=== PATIENT | female | born 1940 | race Caucasian/White ===

== ENCOUNTER → 2023-06-28 12:01 | Outpatient (REF) | payer MEDICARE, SELFPAY | LOC: RAD 12:01 | PROVIDERS: ATTENDING PHYSICIAN Physician Assistant Medical | DX: M25.511 Pain in right shoulder (principal) | CPT/HCPCS: 73030 ==

== ENCOUNTER → 2023-11-30 14:04 | Outpatient (REF) | payer MEDICARE, SELFPAY | LOC: WDC 14:04 | PROVIDERS: ATTENDING PHYSICIAN Family Medicine | DX: Z12.31 Encounter for screening mammogram for malignant neoplasm of breast (principal) | CPT/HCPCS: 77063; 77067 ==

== ENCOUNTER → 2024-04-28 09:27 | Outpatient (REF) | payer MEDICARE, SELFPAY | LOC: RAD 09:27 | PROVIDERS: ATTENDING PHYSICIAN Family Medicine | DX: M25.562 Pain in left knee (principal) | CPT/HCPCS: 73564 ==

== ENCOUNTER → 2024-05-03 11:10 | Outpatient (REF) | payer MEDICARE, SELFPAY | LOC: RAD 11:10 | PROVIDERS: ATTENDING PHYSICIAN Specialist; FAMILY PHYSICIAN Family Medicine | DX: M43.06 Spondylolysis, lumbar region (principal) | CPT/HCPCS: 72110 ==

== ENCOUNTER → 2024-12-05 12:56 | Outpatient (REF) | payer MEDICARE, SELFPAY | LOC: WDC 12:56 | PROVIDERS: ATTENDING PHYSICIAN Family Medicine | DX: Z12.31 Encounter for screening mammogram for malignant neoplasm of breast (principal) | CPT/HCPCS: 77063; 77067 ==

== ENCOUNTER → 2024-12-17 11:25 | Outpatient (REF) | payer MEDICARE, SELFPAY | LOC: REG 11:25 | PROVIDERS: ATTENDING PHYSICIAN Specialist; FAMILY PHYSICIAN Family Medicine | DX: G30.1 Alzheimer's disease with late onset (principal) | CPT/HCPCS: 36415 ==

== ENCOUNTER → 2025-01-15 07:04 | Outpatient (REF) | payer MEDICARE, SELFPAY | LOC: PAVMRI 07:04 | PROVIDERS: ATTENDING PHYSICIAN Specialist; FAMILY PHYSICIAN Family Medicine | DX: G31.84 Mild cognitive impairment of uncertain or unknown etiology (principal) | CPT/HCPCS: 70551 ==